=== PATIENT | male | born 1990 | race Caucasian/White ===

== ENCOUNTER 2017-06-22 21:24 | Emergency (ER) | payer BC ==
[2017-06-23 00:31] VITALS: BP 102/53
== END 2017-06-23 00:31 ==
LOC: ED 21:24
DX: R25.8 Other abnormal involuntary movements (principal); J45.909 Unspecified asthma, uncomplicated; Z88.0 Allergy status to penicillin; Z88.1 Allergy status to other antibiotic agents; Z88.8 Allergy status to other drugs, medicaments and biological substances
CPT/HCPCS: J1200